=== PATIENT | female | born 1995 | race Caucasian/White ===

== ENCOUNTER 2024-12-25 19:15 | Emergency (ER) | payer MEDICAID ==
[~2024-12-25] VITALS: Ht 160 cm; Wt 62.0 kg
[2024-12-25 19:30] VITALS: TEMP 36.7; O2SAT 100
[2024-12-25] MEDS: HYDROCODONE/ACETAMINOPHEN 5/325MG TABLET PO ONE (21:21)
[2024-12-25] MEDS: METHOCARBAMOL 500MG TABLET PO ONE (21:22)
[2024-12-25] MEDS: LIDOCAINE 5% PATCH TOP SCH (21:23)
[2024-12-25] MEDS: DIPHENHYDRAMINE 50MG/ML VIAL IM ONE (21:43)
[2024-12-25] MEDS ORDERED: LIDO700A30 TP (22:06)
[2024-12-25] MEDS ORDERED: METH-653 MT (22:06)
[2024-12-25] MEDS ORDERED: AMOX1TAB16 MT (22:19)
[2024-12-25 22:33] VITALS: BP 127/85; PULSE 87; RESP 12; O2SAT 100
== END 2024-12-25 22:34 | disposition home or self-care (01) ==
LOC: ER 19:15
DX: S13.4XXA Sprain of ligaments of cervical spine, initial encounter (principal); S33.5XXA Sprain of ligaments of lumbar spine, initial encounter; Z90.89 Acquired absence of other organs; Z88.6 Allergy status to analgesic agent; Z88.1 Allergy status to other antibiotic agents; X58.XXXA Exposure to other specified factors, initial encounter; Y93.89 Activity, other specified; Y92.89 Other specified places as the place of occurrence of the external cause; Y99.8 Other external cause status
CPT/HCPCS: 99284; 81025; 96372; J1200